=== PATIENT | male | born 1970 | race Caucasian/White ===

== ENCOUNTER 2021-07-17 06:05 | Emergency (ER) | payer BC | END 2021-07-17 09:17 | disposition home or self-care (01) | LOC: ER1 06:05 | DX: S70.11XA Contusion of right thigh, initial encounter (principal); S30.22XA Contusion of scrotum and testes, initial encounter; Z98.84 Bariatric surgery status; Z90.49 Acquired absence of other specified parts of digestive tract; Z88.1 Allergy status to other antibiotic agents; Z88.0 Allergy status to penicillin; Z88.8 Allergy status to other drugs, medicaments and biological substances; V40.9XXA Unspecified car occupant injured in collision with pedestrian or animal in traffic accident, initial encounter; W22.10XA Striking against or struck by unspecified automobile airbag, initial encounter | CPT/HCPCS: 76870; 99283 ==